=== PATIENT | female | born 1950 | race Caucasian/White ===

== ENCOUNTER 2017-05-10 12:46 | Inpatient (IN) | payer OTHER, MEDICARE ==
[~2017-05-10] VITALS: Wt 53.7 kg
[~2017-05-10 12:46] MED LIST: AMLO5TAB22 PO; CETI10 PO; D32000CA PO; DULE200A PO; GABA400C5 PO; GLIP5 PO; LISI2.5T3 PO; MAGN400 PO; METF500 PO; NAPR250T57 PO; NITR-29 PO; PERF20NE IN; RANI150 PO; TRAM100T19 PO; TRAZ50TA4 PO; VENL75 PO; [UNRECOGNIZED DRUG - CODE] PO; [UNRECOGNIZED DRUG - OTHER] PV
[2017-05-10 13:34] VITALS: BP 115/58; PULSE 79; RESP 18; TEMP 97.8; O2SAT 94
--- NOTE | 2017-05-10 14:37 | RADRPT ---
EXAM DATE/TIME: 05/10/2017 14:20 [facility] COMPARISON: CHEST SINGLE AP, May 16, 2014, 19:39. INDICATIONS : Patient states she fell on Wednesday, left elbow pain and bruising. MEDICAL HISTORY : None. SURGICAL HISTORY : None. ENCOUNTER: Initial ACUITY: 3 days PAIN SCORE: 9/10 LOCATION: Left Elbow FINDINGS: The examination demonstrates a distracted fracture of the olecranon process. The remainder the osseou s structures of the elbow appear intact. There is fairly diffuse soft tissue swelling. CONCLUSION: 1. Distracted fracture of the olecranon process. Shayan Garcia MD on May 10, 2017 at 14:34 Board Certified Radiologist. This report was verified electronically.
--- NOTE | 2017-05-10 15:46 | RADRPT ---
EXAM DATE/TIME: 05/10/2017 15:25 [facility] COMPARISON: No previous studies available for comparison. INDICATIONS : Trauma, fall. Hit right side of face. RADIATION DOSE: 19.18 CTDIvol (mGy) MEDICAL HISTORY : Hypertension. SURGICAL HISTORY : None. ENCOUNTER: Initial ACUITY: 1 day PAIN SCORE: 7/10 LOCATION: Right facial TECHNIQUE: Volumetric scanning of the facial bones was performed. Using automated exposure contr ol and adjustment of the mA and/or kV according to patient size, radiation dose was kept as low as re asonably achievable to obtain optimal diagnostic quality images. DICOM format image data is availabl e electronically for review and comparison. FINDINGS: ORBITS: The orbital and infraorbital osseous structures are intact. The retroconal structures choudhury ve a normal configuration. No radiopaque foreign bodies are seen. NASAL BONE: The nasal bone and maxillary spine are intact ZYGOMATIC ARCHES: Symmetric without evidence of fracture. SINUSES: The maxillary, ethmoid and frontal sinuses are intact. No air-fluid levels seen. NASAL CAVITY: The nasal septum is intact and midline. The lacrimal ducts are intact. SOFT TISSUES: No radiopaque foreign bodies seen. No soft-tissue swelling is seen. INTRACRANIAL: No intracranial air seen. CRIBIFORM PLATE: Grossly intact. CONCLUSION: Minimal soft tissue swelling, negative for fracture Curtis Garcia MD FACR on May 10, 2017 at 15:43 Board Certified Radiologist. This report was verified electronically.
--- NOTE | 2017-05-10 15:49 | RADRPT ---
EXAM DATE/TIME: 05/10/2017 15:25 [facility] COMPARISON: CT BRAIN W/O CONTRAST, May 16, 2014, 19:33. INDICATIONS : Trauma, fall. Hit right side of face. RADIATION DOSE: 45.79 CTDIvol (mGy) MEDICAL HISTORY : Hypertension. SURGICAL HISTORY : None. ENCOUNTER: Initial ACUITY: 1 day PAIN SCALE: 7/10 LOCATION: cranial TECHNIQUE: Multiple contiguous axial images were obtained of the head. Using automated exposure control and adj ustment of the mA and/or kV according to patient size, radiation dose was kept as low as reasonably a chievable to obtain optimal diagnostic quality images. DICOM format image data is available electro nically for review and comparison. FINDINGS: CEREBRUM: The ventricles are normal for age. No evidence of midline shift, mass lesion, hemorrhage or acute in farction. No extra-axial fluid collections are seen. POSTERIOR FOSSA: The cerebellum and brainstem are intact. The 4th ventricle is midline. The cerebellopontine angle i s unremarkable. EXTRACRANIAL: The visualized portion of the orbits is intact. SKULL: The calvaria is intact. No evidence of skull fracture. CONCLUSION: 1. No acute intracranial abnormality is identified. Shayan Garcia MD on May 10, 2017 at 15:33 Board Certified Radiologist. This report was verified electronically.
[2017-05-10 15:56] VITALS: BP 135/62; PULSE 69; RESP 18; O2SAT 98
--- NOTE | 2017-05-10 16:18 | PD ---
HPI Chief Complaint: Fall Time Seen by Provider: 15:44 Travel History International Travel<30 days: No Contact w/Intl Traveler<30days: No Traveled to known affect area: No History of Present Illness HPI 67-year-old female presents to the emergency department for evaluation of head injury, left elbow injury after a slip and fall that occurred on Wednesday, 3 days ago. Patient states she slipped and fell in her kitchen. She denies any LOC. She denies neck pain or back pain. No chest pain or abdominal pain she is not on anticoagulants. Patient states her pain at this time is 0/10. She has swelling noted to the left arm. Exacerbating factors movement of the left elbow. Alleviating factors keeping the arm still. Moderate severity. PFSH Past Medical History Hx Anticoagulant Therapy: No Depression: Yes Cancer: No Cardiovascular Problems: Yes COPD: Yes Diabetes: Yes Patient Takes Glucophage: Yes Diminished Hearing: No Gastrointestinal Disorders: Yes GERD: Yes Genitourinary: No Hypertension: Yes Musculoskeletal: No Neurologic: No Psychiatric: Yes Reproductive: No Respiratory: No Ulcer: Yes (Ruptered ulcer) Tetanus Vaccination: > 5 Years Influenza Vaccination: Yes Menopausal: Yes Past Surgical History Abdominal Surgery: Yes (Surgery to repair ulcer, appendix removal, gall blacdder removal) Cardiac Surgery: No Ear Surgery: No Endocrine Surgery: No Eye Surgery: Yes (Cataract removal left eye) Genitourinary Surgery: Yes (insertion of suprapubic catheter) Gynecologic Surgery: No Hysterectomy: Yes Oral Surgery: No Thoracic Surgery: No Other Surgery: Yes Social History Alcohol Use: No Tobacco Use: No Substance Use: No Allergies-Medications (Allergen,Severity, Reaction): Coded Allergies: No Known Allergies (Unverified Adverse Reaction, Unknown, 05/10/17) Reported Meds & Prescriptions Reported Meds & Active Scripts Active Review of Systems Except as stated in HPI: all other systems reviewed are Neg Physical Exam Narrative GENERAL: Well-nourished, well-developed elderly female patient, afebrile. SKIN: Focused skin assessment warm/dry. Patient has ecchymosis and swelling to the left arm. She has a small abrasion to the left dorsal forearm. HEAD: Normocephalic. Patient has ecchymosis to the right eye orbit. EYES: No scleral icterus. No injection or drainage. NECK: Supple, trachea midline. No JVD or lymphadenopathy. CARDIOVASCULAR: Regular rate and rhythm without murmurs, gallops, or rubs. Left radial pulses easily found with Doppler. RESPIRATORY: Breath sounds equal bilaterally. No accessory muscle use. Lung sounds are clear to auscultation. GASTROINTESTINAL: Abdomen soft, non-tender, nondistended. MUSCULOSKELETAL: No cyanosis, or edema. BACK: Nontender without obvious deformity. No CVA tenderness. No midline spinal tenderness. Data Data Last Documented VS Vital Signs Date Time Temp Pulse Resp B/P (MAP) Pulse Ox O2 Delivery O2 Flow Rate FiO2 05/10/17 15:56 69 18 135/62 (86) 98 Room Air 05/10/17 13:34 97.8 Orders Orders Complete Blood Count With Diff (05/10/17 13:36) Basic Metabolic Panel (Bmp) (05/10/17 13:36) Coag Profile (05/10/17 13:36) Ct Brain W/O Iv Contrast(Rout) (05/10/17 ) Ct Facial Bones W/O Iv Cont (05/10/17 ) Elbow, Complete (4 Vws) (05/10/17 ) Chest, Single Ap (05/10/17 ) Electrocardiogram (05/10/17 ) Splint Or Brace Apply/Monitor (05/10/17 16:28) Fiberglass Splint Elbow Adult (05/10/17 ) Sling Cradle Arm (05/10/17 ) Labs Laboratory Tests Test 05/10/17 16:10 Prothrombin Time 10.0 SEC Prothromb Time International Ratio 1.0 RATIO Activated Partial Thromboplast Time 24.7 SEC MDM Medical Decision Making Medical Screen Exam Complete: Yes Emergency Medical Condition: Yes Medical Record Reviewed: Yes Interpretation(s) Last Impressions Maxillofacial CT 05/10/17 0000 Signed Impressions: Service Date/Time: Wednesday, May 10, 2017 15:25 - CONCLUSION: Minimal soft tissue swelling, negative for fracture Curtis Garcia MD FACR Head CT 05/10/17 0000 Signed Impressions: Service Date/Time: Wednesday, May 10, 2017 15:25 - CONCLUSION: 1. No acute intracranial abnormality is identified. Shayan Garcia MD Elbow X-Ray 05/10/17 0000 Signed Impressions: Service Date/Time: Wednesday, May 10, 2017 14:20 - CONCLUSION: 1. Distracted fracture of the olecranon process. Shayan Garcia MD Differential Diagnosis Elbow fracture versus contusion versus closed head injury versus intracranial hemorrhage versus skull fracture versus facial contusion versus facial fracture Narrative Course 67-year-old female presents to the emergency department for evaluation of head injury, left elbow injury after a slip and fall on Wednesday. X-ray left elbow shows a distracted fracture olecranon process. CT of the head shows no acute intracranial abnormality. CT of the facial bones shows minimal soft tissue swelling, negative for fracture. CBC, BMP, coag profile, EKG, chest x-ray ordered and pending. 1608 -I spoke to Dr. Penaloza, our orthopedist validation consultant. He would like the patient admitted to the hospitalist, n.p.o. after midnight. Dr. Perkins accepted admission. Diagnosis Primary Impression: Fracture of left olecranon process Qualified Codes: S52.022A - Displaced fracture of olecranon process without intraarticular extension of left ulna, initial encounter for closed fracture Admitting Information Admitting Physician Requests: Observation Melinda Zaidi May 10, 2017 16:18
--- NOTE | 2017-05-10 16:42 | RADRPT ---
EXAM DATE/TIME: 05/10/2017 16:22 [facility] COMPARISON: ELBOW LEFT COMPLETE (4 VWS), May 10, 2017, 14:20. INDICATIONS : Evaluate for pneumonia, pneumothorax, or any communicable disease. Pre op left elbow. MEDICAL HISTORY : Hypertension. SURGICAL HISTORY : None. ENCOUNTER: Initial ACUITY: 1 day PAIN SCORE: 0/10 LOCATION: Bilateral chest FINDINGS: The heart is normal in size. There are mild chronic appearing interstitial changes within the pulmona ry parenchyma. The lungs are otherwise clear. The visualized osseous structures are grossly intact. CONCLUSION: 1. Chronic appearing interstitial changes. The lungs are otherwise clear. Shayan Garcia MD on May 10, 2017 at 16:37 Board Certified Radiologist. This report was verified electronically.
[2017-05-10] MEDS ORDERED: NALOXONE HCL 0.4 MG/ML AMP IV PUSH PRN (17:45)
[2017-05-10] MEDS ORDERED: ACETAMINOPHEN/HYDROcodone 325 MG/7.5 MG TAB PO PRN (17:45)
[2017-05-10] MEDS ORDERED: ONDANSETRON HCL 4 MG/2 ML VIAL IVP PRN (17:45)
[2017-05-10] MEDS ORDERED: SODIUM CHLORIDE 0.9% FLUSH 10 ML FLUSH IV FLUSH PRN (17:45)
[2017-05-10] MEDS ORDERED: ACETAMINOPHEN/HYDROcodone 325 MG/5 MG TAB PO PRN (17:45)
[2017-05-10] MEDS ORDERED: BISACODYL 10 MG SUPP RECTAL PRN (17:45)
[2017-05-10] MEDS ORDERED: LACTULOSE SYRUP 20 GM/30 ML CUP PO PRN (17:45)
[2017-05-10] MEDS ORDERED: SENNOSIDES 8.6 MG TAB PO PRN (17:45)
[2017-05-10] MEDS ORDERED: ACETAMINOPHEN 325 MG TAB PO PRN (17:45)
[2017-05-10] MEDS ORDERED: MAGNESIUM HYDROXIDE SUSP 30 ML CUP PO PRN (17:45)
[2017-05-10] MEDS ORDERED: RESP: ALBUTEROL 2.5 MG/IPRATROPIUM 0.5 MG NEB (PRN) NEB (18:00)
[2017-05-10 19:56] VITALS: BP 121/69; PULSE 73; RESP 18; TEMP 98; O2SAT 98
[2017-05-10] MEDS ORDERED: DEXTROSE 50% IN WATER 50 ML VIAL(D50) IV PUSH PRN (20:45)
[2017-05-10] MEDS ORDERED: GLUCAGON 1 MG/ML VIAL OTHER PRN (20:45)
[2017-05-10] MEDS: DOCUSATE SODIUM 50 MG/SENNA 8.6 MG TAB PO SCH (21:00)
[2017-05-10] MEDS: INSULIN ASPART SUPPLEMENTAL SCALE SQ SCH (21:00)
--- NOTE | 2017-05-10 21:50 | HHI.HP ---
HPI Service [facility] Primary Care Physician [facility] Admission Diagnosis Distracted left olecranon fracture Diagnoses: (1) Fracture of left olecranon process Chief Complaint: left elbow and right head pain s/p fall at home Travel History International Travel<30 Days: No Contact w/Intl Traveler <30 Da: No Traveled to Known Affected Are: No History of Present Illness Ms. Rubalcava is a 67-year-old female with a history of COPD, Type 2 Diabetes Mellitus, hypertension, and ruptured gastric ulcer presented to the emergency room for evaluation of left arm pain and right head pain following a mechanical fall that occurred at her home. She was found to have a distracted fracture of the left olecranon process and is being admitted for orthopedic surgery evaluation and treatment. She was admitted to the hospitalist service for management of her chronic medical problems. The patient is seen in her hospital room. She reports falling at home on Wednesday , 05/07/2017 with subsequent pain in her left arm and right anglican area and developing ecchymosis over the course of the weekend. She really did not want to come into the hospital but when the pain would not subside and the bruising seemed to be getting worse, she presented today. She reports pain in the left elbow as 7 out of 10 and "achy" in quality though it becomes sharp in quality with movement. Symptom is relieved by resting and not moving her arm. Currently, her head pain is a 3 out of 10 with worsening pain upon bending forward. She denies any loss of consciousness, chest pain, or shortness of breath prior to her fall. She denies any recent fever, chills, nausea, vomiting , diarrhea, and black or tarry stools. Review of Systems Except as stated in HPI: all other systems reviewed are Neg Past Family Social History Past Medical History COPD, Type 2 Diabetes Mellitus, hypertension, and ruptured gastric ulcer . Past Surgical History Cholecystectomy Appendectomy Gastric ulcer repair Hysterectomy Left eye cataract surgery Suprapubic catheter placement . Reported Medications The patient is uncertain of her home meds and receives her medications from the [facility] . Allergies: Coded Allergies: No Known Allergies (Unverified Allergy, Unknown, 05/10/17) Family History Parents when patient was only 1 years old and she is uncertain of cause of ; she has no siblings; she has 2 healthy sons ages 47 and 42 . Social History Tobacco: Smoked 3 packs per day; quit smoking 15 years ago; quit smoking around the age of 52 and started smoking in her teens Alcohol: Denies drinking alcohol currently and denies being a heavy drinker at any time . Physical Exam Vital Signs Vital Signs Date Time Temp Pulse Resp B/P (MAP) Pulse Ox O2 Delivery O2 Flow Rate FiO2 05/10/17 19:56 98.0 73 18 121/69 (86) 98 05/10/17 18:48 05/10/17 15:56 69 18 135/62 (86) 98 Room Air 05/10/17 15:53 69 18 99 Room Air 05/10/17 13:34 97.8 79 18 115/58 (77) 94 Physical Exam CONSTITUTIONAL: This is a well-nourished, pleasant elderly female patient, in no apparent distress. INTEGUMENTARY: No rashes. Cool and dry. Bruising to right anglican region and periorbital region. Left arm in full arm splint; ecchymosis and edema noted in fingers on the left but finger movement, sensation, and capillary refill normal on left. EYES: No scleral icterus. No injection or drainage. ENT: Nose without bleeding, purulent drainage. NECK: Trachea midline. No JVD. CARDIOVASCULAR: Regular rate and rhythm without murmurs, gallops, or rubs. RESPIRATORY: Clear to auscultation. Breath sounds equal bilaterally. No wheezes , rales, or rhonchi. GASTROINTESTINAL: Abdomen soft, non-tender, nondistended. No guarding. GENITOURINARY: Suprapubic catheter noted draining to leg bag; suprapubic site without signs of infection. MUSCULOSKELETAL: Extremities without clubbing, cyanosis, or edema. No calf tenderness. NEUROLOGICAL: Awake and alert. Motor and sensory grossly within normal limits. Normal speech. . Laboratory Laboratory Tests Test 05/10/17 16:10 Prothrombin Time 10.0 Prothromb Time International Ratio 1.0 Activated Partial Thromboplast Time 24.7 Imaging Last Impressions Maxillofacial CT 05/10/17 0000 Signed Impressions: Service Date/Time: Wednesday, May 10, 2017 15:25 - CONCLUSION: Minimal soft tissue swelling, negative for fracture Curtis Garcia MD FACR Head CT 05/10/17 0000 Signed Impressions: Service Date/Time: Wednesday, May 10, 2017 15:25 - CONCLUSION: 1. No acute intracranial abnormality is identified. Shayan Garcia MD Elbow X-Ray 05/10/17 0000 Signed Impressions: Service Date/Time: Wednesday, May 10, 2017 14:20 - CONCLUSION: 1. Distracted fracture of the olecranon process. Shayan Garcia MD Chest X-Ray 05/10/17 0000 Signed Impressions: Service Date/Time: Wednesday, May 10, 2017 16:22 - CONCLUSION: 1. Chronic appearing interstitial changes. The lungs are otherwise clear. Shayan Garcia MD . Caprini VTE Risk Assessment Caprini VTE Risk Assessment: Mod/High Risk (score >= 2) Caprini Risk Assessment Model Point Value = 1 Point Value = 2 Point Value = 3 Point Value = 5 Age 41-60 Minor surgery BMI > 25 kg/m2 Swollen legs Varicose veins or History of unexplained or recurrent spontaneous Oral contraceptives or hormone replacement Sepsis (< 1 month) Serious lung disease, including pneumonia (< 1 month) Abnormal pulmonary function Acute myocardial infarction Congestive heart failure (< 1 month) History of inflammatory bowel disease Medical patient at bed rest Age 61-74 Arthroscopic surgery Major open surgery (> 45 min) Laparoscopic surgery (> 45 min) Malignancy Confined to bed (> 72 hours) Immobilizing plaster cast Central venous access Age >= 75 History of VTE Family history of VTE Factor V Leiden Prothrombin [id number] Lupus anticoagulant Anticardiolipin antibodies Elevated serum homocysteine Heparin-induced thrombocytopenia Other congenital or acquired thrombophilia Stroke (< 1 month) Elective arthroplasty Hip, pelvis, or leg fracture Acute spinal cord injury (< 1 month) Prophylaxis Regimen Total Risk Factor Score Risk Level Prophylaxis Regimen 0-1 Low Early ambulation 2 Moderate Order ONE of the following: *Sequential Compression Device (SCD) *Heparin 5000 units SQ BID 3-4 Higher Order ONE of the following medications: *Heparin 5000 units SQ TID *Enoxaparin/Lovenox 40 mg SQ daily (WT < 150 kg, CrCl > 30 mL/min) *Enoxaparin/Lovenox 30 mg SQ daily (WT < 150 kg, CrCl > 10-29 mL/min) *Enoxaparin/Lovenox 30 mg SQ BID (WT < 150 kg, CrCl > 30 mL/min) AND/OR *Sequential Compression Device (SCD) 5 or more Highest Order ONE of the following medications: *Heparin 5000 units SQ TID (Preferred with Epidurals) *Enoxaparin/Lovenox 40 mg SQ daily (WT < 150 kg, CrCl > 30 mL/min) *Enoxaparin/Lovenox 30 mg SQ daily (WT < 150 kg, CrCl > 10-29 mL/min) *Enoxaparin/Lovenox 30 mg SQ BID (WT < 150 kg, CrCl > 30 mL/min) AND *Sequential Compression Device (SCD) Assessment and Plan Problem List: (1) Fracture of left olecranon process ICD Code: S52.022A - Displaced fracture of olecranon process without intraarticular extension of left ulna, initial encounter for closed fracture Status: Acute Assessment and Plan Ms. Rubalcava is a 67-year-old female with a history of COPD, Type 2 Diabetes Mellitus, hypertension, and ruptured gastric ulcer presented to the emergency room for evaluation of left arm pain and right head pain following a mechanical fall that occurred at her home. She was found to have a distracted fracture of the left olecranon process and is being admitted for orthopedic surgery evaluation and treatment. She was admitted to the hospitalist service for management of her chronic medical problems. Fracture of the left olecranon process - Orthopedic surgeon, Dr. Penaloza, consulted in the ER - Patient n.p.o. after midnight - Hydrocodone as needed for pain Type 2 Diabetes Mellitus - Accu-Cheks before meals and at bedtime with low-dose NovoLog sliding scale coverage - PRN Hypoglycemia protocol - Monitor trends and blood glucose readings and adjust treatments as indicated Acute on chronic renal insufficiency secondary to mild dehydration - BUN elevated at 19, creatinine 0.97, estimated GFR 57 -no recent baseline labs for comparison - IV fluid hydration with D5 normal saline at 84 cc/h while n.p.o. - Monitor intake and output every shift - Check CMP in a.m. and follow results in a.m. follow results - Avoid nephrotoxins Hyperkalemia - Kayexalate 15 g p.o. 1 dose - Recheck potassium in morning and follow results - Continuous cardiac telemetry to monitor for arrhythmias Anemia - H&H 9.9 and 30.9 respectively - no recent labs for comparison - Monitor CBC - will check iron/TIBC profile Will need to verify home medications as soon as possible so that those medications can be continued - patient could not specifically report her home medications DVT prophylaxis - SCDs/TEDs. . Discussed Condition With Dr. Mckay, patient, and RN Physician Certification 2 Midnight Certification Type: Admission for Inpatient Services Order for Inpatient Services The services are ordered in accordance with Medicare regulations or non- Medicare payer requirements, as applicable. In the case of services not specified as inpatient-only, they are appropriately provided as inpatient services in accordance with the 2-midnight benchmark. Estimated LOS (days): 3 days is the estimated time the patient will need to remain in the hospital, assuming treatment plan goals are met and no additional complications. Post-Hospital Plan: Home Problem Qualifiers (1) Fracture of left olecranon process: Qualified Codes: S52.022A - Displaced fracture of olecranon process without intraarticular extension of left ulna, initial encounter for closed fracture Dulce Maria Vargas May 10, 2017 21:50
[2017-05-10] MEDS ORDERED: PANTOPRAZOLE SOD 40 MG DELAYED RELEASE TAB PO ONE (22:00)
[2017-05-10] MEDS ORDERED: CALCIUM CARBONATE 500 MG CHEWABLE TAB CHEW ONE (22:00)
[2017-05-10 22:24] LABS: AUTOMATED NEUTROPHIL # 4.8 TH/MM3 (1.8-7.7); BASOPHIL % 0.4 % (0.0-2.0); EOSINOPHIL # 0.1 TH/MM3 (0-0.4); EOSINOPHIL % 1.7 % (0.0-4.0); HEMATOCRIT 30.9 % (35.0-46.0); HEMOGLOBIN 9.9 GM/DL (11.6-15.3); LYMPH % 19.6 % (9.0-44.0); LYMPHOCYTE # 1.3 TH/MM3 (1.0-4.8); MEAN CELL VOLUME 79.5 FL (80.0-100.0); MEAN CORPUSCULAR HEMOGLOBIN 25.4 PG (27.0-34.0); MEAN CORPUSCULAR HGB CONC 31.9 % (32.0-36.0); MEAN PLATELET VOLUME 8.9 FL (7.0-11.0); MONO % 8.3 % (0.0-8.0); MONOCYTE # 0.6 TH/MM3 (0-0.9); PLATELET COUNT 245 TH/MM3 (150-450); RED BLOOD COUNT 3.89 MIL/MM3 (4.00-5.30); RED CELL DISTRIBUTION WIDTH 18.6 % (11.6-17.2); WHITE BLOOD COUNT 6.8 TH/MM3 (4.0-11.0)
[2017-05-10 22:36] LABS: BICARBONATE 22.8 MEQ/L (21.0-32.0); CREATININE 0.97 MG/DL (0.50-1.00)
[2017-05-10] MEDS: SODIUM CHLORIDE 0.9% FLUSH 10 ML FLUSH IV FLUSH SCH (23:45)
[2017-05-11] MEDS ORDERED: SODIUM POLYSTYRENE SULFONATE SUSP 15 GM/60 ML CUP PO ONE (00:45)
[2017-05-11] MEDS ORDERED: DEXT 5%-NACL 0.9% 1000 ML INJ 1,000 ML IV SCH (01:00)
[2017-05-11] MEDS ORDERED: GLIP5TAB8 PO (01:28)
[2017-05-11] MEDS ORDERED: NAPR250T4 PO (01:28)
[2017-05-11] MEDS ORDERED: TRAM50TA PO (01:28)
[2017-05-11] MEDS ORDERED: GABA400C5 PO (01:28)
[2017-05-11] MEDS ORDERED: METF500T PO (01:28)
[2017-05-11 01:56] VITALS: PULSE 74
[2017-05-11 04:00] VITALS: PULSE 89
[2017-05-11 06:06] VITALS: BP 114/72; PULSE 86; RESP 18; TEMP 98.8; O2SAT 96
[2017-05-11 07:38] LABS: BASOPHIL % 0.3 % (0.0-2.0); EOSINOPHIL # 0.1 TH/MM3 (0-0.4); EOSINOPHIL % 1.9 % (0.0-4.0); HEMOGLOBIN 9.8 GM/DL (11.6-15.3); LYMPH % 16.4 % (9.0-44.0); LYMPHOCYTE # 0.9 TH/MM3 (1.0-4.8); MEAN CELL VOLUME 80.6 FL (80.0-100.0); MEAN CORPUSCULAR HEMOGLOBIN 25.6 PG (27.0-34.0); MEAN CORPUSCULAR HGB CONC 31.7 % (32.0-36.0); MEAN PLATELET VOLUME 8.7 FL (7.0-11.0); MONO % 6.6 % (0.0-8.0); MONOCYTE # 0.4 TH/MM3 (0-0.9); NEUT % 74.8 % (16.0-70.0); PLATELET COUNT 266 TH/MM3 (150-450); RED BLOOD COUNT 3.84 MIL/MM3 (4.00-5.30); RED CELL DISTRIBUTION WIDTH 18.4 % (11.6-17.2); WHITE BLOOD COUNT 5.3 TH/MM3 (4.0-11.0)
[2017-05-11 08:00] VITALS: PULSE 90
[2017-05-11] MEDS: INSULIN ASPART SUPPLEMENTAL SCALE SQ SCH ×4 (08:00→21:01)
[2017-05-11 08:09] LABS: % SATURATION IRON PROFILE 7.3 % (20-50); ALBUMIN 3.1 GM/DL (3.4-5.0); ALKALINE PHOSPHATASE 119 U/L (45-117); ALT (GPT) 20 U/L (10-53); AST (GOT) 24 U/L (15-37); BLOOD UREA NITROGEN 16 MG/DL (7-18); CALCIUM 8.8 MG/DL (8.5-10.1); CHLORIDE 107 MEQ/L (98-107); CREATININE 1.12 MG/DL (0.50-1.00); GLOMERULAR FILTRATION RATE 48 ML/MIN (>89); GLUCOSE,RANDOM 199 MG/DL (74-106); IRON (FE) 26 MCG/DL (50-170); SODIUM (NA) 138 MEQ/L (136-145); TOTAL BILIRUBIN ADULT 0.4 MG/DL (0.2-1.0); TOTAL IRON BINDING CAPACITY 357 MCG/DL (250-450); TOTAL PROTEIN 7.1 GM/DL (6.4-8.2)
[2017-05-11] MEDS ORDERED: POVIDONE IODINE 5% (ANTISEPSIS KIT) 4 APPLICATIONS EACH NARE PRN (08:30)
[2017-05-11] MEDS ORDERED: METOPROLOL TARTRATE 25 MG TAB PO PRN (08:30)
[2017-05-11] MEDS ORDERED: LACTATED RINGER'S 1000 ML IV PRN (08:30)
[2017-05-11] MEDS ORDERED: CHLORHEXIDINE GLUCONATE 2 % 1 PACK (2 CLOTHS) TOPICAL PRN (08:30)
[2017-05-11] MEDS ORDERED: SODIUM CHLORID 0.9% 500 ML IV PRN (08:30)
[2017-05-11 08:38] VITALS: BP 151/67; PULSE 88; RESP 14; TEMP 98.5; O2SAT 96
--- NOTE | 2017-05-11 08:44 | EKG ---
Date Performed: 05/11/2017 Time Performed: 06:48:28 PTAGE: 67 years EKG: Sinus rhythm WITH SHORT TN INTERVAL PROBABLE ARM LEAD REVERSAL ABNORMAL ECG PREVIOUS TRACING : 05/10/2017 16.51 Compared to previous tracing, arm lead reversal is now pres ent. DOCTOR: Ruben Schafer Interpretating Date/Time 05/11/2017 08:23:36
[2017-05-11] MEDS: DOCUSATE SODIUM 50 MG/SENNA 8.6 MG TAB PO SCH ×2 (09:00→20:53)
[2017-05-11] MEDS: SODIUM CHLORIDE 0.9% FLUSH 10 ML FLUSH IV FLUSH SCH ×2 (09:00→20:53)
[2017-05-11] MEDS ORDERED: ACETAMINOPHEN 1000 MG/100 ML 100 ML IV ONE (09:30)
[2017-05-11] MEDS ORDERED: VANCOMYCIN HCL 1000 MG VIAL ONE (09:31)
[2017-05-11] MEDS ORDERED: SODIUM CHLOR 0.9% 250 ML INJ 250 ML ONE (09:32)
[2017-05-11] MEDS ORDERED: GENTAMICIN SULFATE 80 MG/2 ML VIAL ONE (09:40)
[2017-05-11] MEDS ORDERED: HYDR-3580 PO (10:06)
[2017-05-11] MEDS ORDERED: VITA2000 PO (10:06)
[2017-05-11] MEDS ORDERED: CALCTAB19 PO (10:06)
[2017-05-11] MEDS ORDERED: VITA500012 PO (10:06)
[2017-05-11] MEDS ORDERED: ceFAZolin INJ 1,000 MG VIAL ONE (10:08)
--- NOTE | 2017-05-11 10:57 | MB ---
cc: Dayne Constantino MD DATE OF CONSULT: 05/11/2017 REASON FOR CONSULTATION: Left proximal ulna fracture. CONSULTING PHYSICIAN: Dr. Gray. HISTORY: Ms. Rubalcava is a 67-year-old female who does have multiple medical problems including COPD and diabetes. She describes a mechanical fall. She states that she was walking and was in a hurry. She had coffee in her hands. She lost her balance and fell. She did hit her head. She had no loss of consciousness. She also landed on her left elbow. She had immediate left elbow pain. She presented to the Emergency Room where x-rays revealed a displaced left olecranon fracture. She is currently awake and alert in the emergency room. Her main complaint is her left elbow. Pain is worse with movement. She does have some soreness on the right side of her face. She denies dizziness, syncope or loss of consciousness. PAST MEDICAL HISTORY: COPD, type 2 diabetes, hypertension, history of gastric ulcer. PAST SURGICAL HISTORY: Cholecystectomy, hysterectomy, gastric ulcer repair, cataract surgery, hysterectomy. MEDICATIONS: Please see EMR for complete list of inpatient medications. This was reviewed. ALLERGIES: NO KNOWN DRUG ALLERGIES. FAMILY HISTORY: The patient is unsure of her family history. Her parents when she was only 1 years old. She has no siblings. SOCIAL HISTORY: The patient quit smoking 15 years ago. She denies alcohol or drug use. REVIEW OF SYSTEMS: The patient denies headache, visual changes, neck pain, chest pain, shortness of breath, abdominal pain, nausea, vomiting or recent weight loss, fevers or chills, numbness or tingling of extremities. She complains of left elbow pain. The pain is worse with movement. PHYSICAL EXAMINATION: GENERAL: The patient is a pleasant 67-year-old female. She is awake and She is alert and oriented x3. VITAL SIGNS: Temperature 98.5, pulse 88, respirations 14, blood pressure 151/67, O2 saturations 96% on room air. HEENT: The patient is normocephalic. The patient has a large contusion over her right eye and orbit. Pupils are equal. NECK: Soft, nontender. The trachea is in the midline head. ABDOMEN: Soft, nontender, nondistended. EXTREMITIES: Examination of the right upper extremity reveals no pain with shoulder, elbow and wrist motion. She has intact sensation in all fingers. She has good capillary refill in all fingers. Skin is intact. Radial pulses palpable. Examination of the left arm reveals no tenderness around her shoulder, wrist or fingers. She has intact sensation in all fingers. She has pain with any elbow motion. She has mild swelling around the elbow. The forearm compartments are soft. Examination of the lower extremities reveals no pain with hip, knee or ankle motion bilaterally. Sensation is intact to both feet. She has good capillary refill in both feet. X-RAYS: X-rays of the left elbow were reviewed. X-rays reveal a displaced left olecranon fracture. The remainder of the ulnohumeral joint is reduced. LABORATORY DATA: The patient has a white blood cell count of 5.3, hemoglobin of 9.8, hematocrit of 31.0. INR is 1.0. BUN is 16 and creatinine is 1.12. IMPRESSION: 1. COPD. 2. Diabetes. 3. Left olecranon fracture. PLAN: Treatment options were discussed with the patient. At this point, I would recommend open reduction, internal fixation of left olecranon. Risks of surgery include bleeding, infection, injuries to arteries, nerves and blood vessels, nonunion, malunion, wound complications, painful hardware, need for hardware removal, as well as medical complications including blood clot, stroke, heart attack and . All questions were answered. I also explained that to her that she will likely have some loss of elbow motion. I will plan on surgery today. A mid-level provider in my office, nurse practitioner or PA, may see this patient on a follow-up basis and continue to implement the objective of this plan including: Starting or adjusting medications, injections of muscle, tendon, bursa or joints, cast application, orthotic or brace application, physical therapy, further radiographic studies including x-ray, MRI, CT, ultrasounds or bone scan, vascular studies, neurologic studies, or other specialist consultations, and proceeding with surgical management as appropriate. MD EMPERATRIZ Skelton/LEÓN , 10:33 AM , 10:55 AM
--- NOTE | 2017-05-11 11:00 | HHI.PR ---
Subjective Remarks In bed. Says she has pain in her arm but is controlled by meds. . There is also complaining of headaches after the fall. No chest pain or shortness of breath no palpitations. No fever or chills. Objective Vitals Vital Signs Date Time Temp Pulse Resp B/P (MAP) Pulse Ox O2 Delivery O2 Flow Rate FiO2 05/11/17 08:38 98.5 88 14 151/67 (95) 96 05/11/17 08:00 90 05/11/17 06:36 20 05/11/17 06:06 98.8 86 18 114/72 (86) 96 05/11/17 04:00 89 05/11/17 01:56 74 05/10/17 19:56 98.0 73 18 121/69 (86) 98 05/10/17 18:48 05/10/17 15:56 69 18 135/62 (86) 98 Room Air 05/10/17 15:53 69 18 99 Room Air 05/10/17 13:34 97.8 79 18 115/58 (77) 94 I/O 05/10/17 05/10/17 05/10/17 05/11/17 05/11/17 05/11/17 07:00 15:00 23:00 07:00 15:00 23:00 Output Total 1300 ml 300 ml Balance -1300 ml -300 ml Output Urine Total 1300 ml 300 ml # Voids 1 # Bowel Movements 1 Result Diagram: 05/11/17 0638 05/11/17 0638 Imaging Last Impressions Maxillofacial CT 05/10/17 0000 Signed Impressions: Service Date/Time: Wednesday, May 10, 2017 15:25 - CONCLUSION: Minimal soft tissue swelling, negative for fracture Curtis Garcia MD FACR Head CT 05/10/17 0000 Signed Impressions: Service Date/Time: Wednesday, May 10, 2017 15:25 - CONCLUSION: 1. No acute intracranial abnormality is identified. Shayan Garcia MD Elbow X-Ray 05/10/17 0000 Signed Impressions: Service Date/Time: Wednesday, May 10, 2017 14:20 - CONCLUSION: 1. Distracted fracture of the olecranon process. Shayan Garcia MD Chest X-Ray 05/10/17 0000 Signed Impressions: Service Date/Time: Wednesday, May 10, 2017 16:22 - CONCLUSION: 1. Chronic appearing interstitial changes. The lungs are otherwise clear. Shayan Garcia MD Objective Remarks GENERAL APPEARANCE : This is a well-nourished, pleasant elderly female patient, in no apparent distress. SKIN: No rashes. Cool and dry. Bruising to right taoist region and periorbital region. Left arm in full arm splint; ecchymosis and edema noted in fingers on the left but finger movement, sensation, and capillary refill normal on left. CARDIOVASCULAR: Regular rate and rhythm without murmurs, gallops, or rubs. RESPIRATORY: Clear to auscultation. Breath sounds equal bilaterally. No wheezes , rales, or rhonchi. GASTROINTESTINAL: Abdomen soft, non-tender, nondistended. No guarding. GENITOURINARY: Suprapubic catheter noted draining to leg bag; suprapubic site without signs of infection. MUSCULOSKELETAL: Extremities without clubbing, cyanosis, or edema. No calf tenderness. NEUROLOGICAL: Awake and alert. Motor and sensory grossly within normal limits. Normal speech. A/P Problem List: (1) Fracture of left olecranon process ICD Code: S52.022A - Displaced fracture of olecranon process without intraarticular extension of left ulna, initial encounter for closed fracture Status: Acute Assessment and Plan Ms. Rubalcava is a 67-year-old female with a history of COPD, Type 2 Diabetes Mellitus, hypertension, and ruptured gastric ulcer presented to the emergency room for evaluation of left arm pain and right head pain following a mechanical fall that occurred at her home. She was found to have a distracted fracture of the left olecranon process and is being admitted for orthopedic surgery evaluation and treatment. She was admitted to the hospitalist service for management of her chronic medical problems. Fracture of the left olecranon process - Orthopedic surgeon, Dr. Penaloza,plan for OR today - Patient n.p.o. after midnight - Hydrocodone as needed for pain Type 2 Diabetes Mellitus - Accu-Cheks before meals and at bedtime with low-dose NovoLog sliding scale coverage - PRN Hypoglycemia protocol - Monitor trends and blood glucose readings and adjust treatments as indicated Acute on chronic renal insufficiency secondary to mild dehydration - BUN elevated at 19, creatinine 0.97, estimated GFR 57 -no recent baseline labs for comparison - IV fluid hydration with D5 normal saline at 84 cc/h while n.p.o. - Monitor intake and output every shift - Check CMP in a.m. and follow results in a.m. follow results - Avoid nephrotoxins Hyperkalemia - Kayexalate 15 g p.o. 1 dose - Recheck potassium in morning and follow results - Continuous cardiac telemetry to monitor for arrhythmias Anemia - H&H 9.9 and 30.9 respectively - no recent labs for comparison - Monitor CBC - will check iron/TIBC profile DVT prophylaxis - SCDs/TEDs. Consult PT/OT Discussed Condition With patient, and nurse DC when cleared by ortho. Patient might need rehab Problem Qualifiers (1) Fracture of left olecranon process: Qualified Codes: S52.022A - Displaced fracture of olecranon process without intraarticular extension of left ulna, initial encounter for closed fracture Elena Montgomery MD May 11, 2017 11:00
[2017-05-11] MEDS ORDERED: Post-op Orders (for Pharmacy) XX ONE (11:30)
[2017-05-11] MEDS ORDERED: MORPHINE SULFATE 4 MG/ML INJ IV PUSH PRN (11:30)
--- NOTE | 2017-05-11 11:30 | PD.OP ---
cc: Dayne May MD Operative Report Date of Surgery: May 11, 2017 Preoperative Diagnosis: Displaced left olecranon fracture Postoperative Diagnosis: Procedure: Open reduction internal fixation left olecranon Anesthesia: Gen. Surgeon: Dayne May Van Helper(s): JOSE Collins PA-C The surgical procedure was assisted by my physician bilingual sales assistant. My P.A. presence was necessary throughout this case for the manipulation and positioning of the surgical extremity. My P.A. was assisting me throughout the duration of this procedure. The skill set of a physician bilingual sales assistant was medically necessary to complete this procedure. During the surgical case the composite technician was working at the back table and the physician bilingual sales assistant was directly assisting me. Operation and Findings: Implants used: Biomet Patient was seen and evaluated preoperatively. Patient was found to have a displaced intra-articular left olecranon fracture. The risk and benefits of the surgery were discussed in depth and informed consent was obtained. Risk of surgery include bleeding, infection, painful hardware, wound, case, elbow stiffness, loss of motion, elbow arthritis, injuries to arteries nerves or blood vessels, weakness and numbness of hand, as well as medical complications associated with general anesthesia. All questions were answered. Patient was brought to operating room. IV sedation and anesthesia were administered. Patient was placed into a lateral decubitus position. Timeout procedure was performed. IV antibiotics were administered prior to incision. The operative arm was prepped with alcohol followed by Hibiclens and draped in usual sterile fashion. Procedure began with a 4 inch incision over the olecranon. Subcutaneous tissue dissected with Bovie. Fracture site was visualized. Fascia was elevated around the fracture site. There was mild comminution of the fracture site. Fracture fragments were gently manipulated. A fracture tenaculum was used to aid in reduction. Multiple K wires result provisional fixation. A Biomet proximal plate was selected. Plate was provisionally held with K wires 3.5 cortical screws were used to compress plate to bone. Multiple cortical screws were placed in the ulna shaft. Multiple locking screws were placed in the proximal ulna. All screws were predrilled and premeasured for appropriate length. K wires were removed. Final fluoroscopy revealed excellent of fractures well-placed hardware. Articular surface appeared to be in near anatomic alignment. Wound was now thoroughly irrigated. Incision was now closed with #1 Vicryl, 3-0 Vicryl, and tylor. Sterile dressings were applied. Patient's placed a well molded well-padded splint. Patient was transferred to recovery in stable condition. Dayne May MD May 11, 2017 11:30
[2017-05-11] MEDS ORDERED: DO NOT ADM ANY ANTICOAGULANT DRUGS PRN (11:47)
[2017-05-11] MEDS ORDERED: MIDAZOLAM HCL 2 MG/2 ML VIAL ONE (11:55)
[2017-05-11] MEDS ORDERED: MORPHINE SULFATE 2 MG/ML INJ ONE ×2 (11:58→12:32)
[2017-05-11] MEDS ORDERED: PROPOFOL 200 MG/20 ML AMP IV ONE (12:00)
[2017-05-11] MEDS ORDERED: NEOSTIGMINE 5 MG/5 ML SYRINGE IV PUSH ONE (12:00)
[2017-05-11] MEDS ORDERED: LIDOCAINE HCL 1% PF 5 ML SYRINGE OTHER ONE (12:00)
[2017-05-11] MEDS ORDERED: ONDANSETRON HCL 4 MG/2 ML VIAL IV ONE (12:00)
[2017-05-11] MEDS ORDERED: GLYCOPYRROLATE 1 MG/5 ML SYRINGE IV PUSH ONE (12:00)
[2017-05-11] MEDS ORDERED: ROCURONIUM INJ 50 MG/5 ML SYRINGE IV PUSH ONE (12:00)
[2017-05-11 13:28] VITALS: BP 134/90; PULSE 80; RESP 14; TEMP 96.8; O2SAT 97
--- NOTE | 2017-05-11 13:59 | RADRPT ---
EXAM DATE/TIME: 05/11/2017 11:16 [facility] COMPARISON: FLUOROSCOPY PORTABLE UP TO 1HR, May 11, 2017, 0:00. INDICATIONS : Post op ORIF left olecranon. MEDICAL HISTORY : Hypertension. SURGICAL HISTORY : None. ENCOUNTER: Subsequent ACUITY: 2 days PAIN SCORE: Non-responsive. LOCATION: Left Elbow. FINDINGS: The examination demonstrates interval ORIF of the patient's olecranon fracture. The alignment post pl ating is excellent. CONCLUSION: 1. Excellent alignment of the patient's fracture post plating. Shayan Garcia MD on May 11, 2017 at 13:57 Board Certified Radiologist. This report was verified electronically.
[2017-05-11] MEDS: ACETAMINOPHEN/HYDROcodone 325 MG/7.5 MG TAB PO PRN ×2 (15:11→20:53)
--- NOTE | 2017-05-11 15:55 | EKG ---
Date Performed: 05/10/2017 Time Performed: 16:51:03 PTAGE: 67 years EKG: Sinus rhythm WITH SHORT OH INTERVAL LOW QRS VOLTAGE IN PRECORDIAL LEADS POSSIBLE ANTERIOR MYOCARDIAL INFARCTION B ORDERLINE ECG PREVIOUS TRACING : 05/17/2014 17.22 Compared to previous tracing, heart rate has decreased, poo r R wave progression is now present. DOCTOR: Ruben Schafer Interpretating Date/Time 05/11/2017 15:54:50
[2017-05-11] MEDS ORDERED: ceFAZolin 2 GM PREMIX 50 ML IV SCH (18:00)
--- NOTE | 2017-05-11 18:52 | HHI.DS ---
Discharge Summary Admission Date May 10, 2017 at 17:39 Discharge Date: May 11, 2017 Admitting Diagnosis Distracted left olecranon fracture (1) Fracture of left olecranon process ICD Code: S52.022A - Displaced fracture of olecranon process without intraarticular extension of left ulna, initial encounter for closed fracture Status: Acute (2) Altered mental status ICD Code: R41.82 - Altered mental status Status: Acute (3) Urgency incontinence ICD Code: N39.41 - Urgency incontinence Status: Acute (4) COPD (chronic obstructive pulmonary disease) ICD Code: J44.9 - COPD (chronic obstructive pulmonary disease) Status: Acute (5) Diabetes mellitus ICD Code: E11.9 - Diabetes mellitus Status: Acute (6) Hypertension ICD Code: I10 - Hypertension Status: Acute (7) CKD (chronic kidney disease) stage 2, GFR 60-89 ml/min ICD Code: N18.2 - CKD (chronic kidney disease) stage 2, GFR 60-89 ml/min Status: Acute (8) Fall ICD Code: W19.XXXA - Fall Status: Acute Procedures Displaced left olecranon fracture s/p Open reduction internal fixation left olecranon 05/11/[address] Constantino Brief History - From Admission Ms. Rubalcava is a 67-year-old female with a history of COPD, Type 2 Diabetes Mellitus, hypertension, and ruptured gastric ulcer presented to the emergency room for evaluation of left arm pain and right head pain following a mechanical fall that occurred at her home. She was found to have a distracted fracture of the left olecranon process and is being admitted for orthopedic surgery evaluation and treatment. She was admitted to the hospitalist service for management of her chronic medical problems. The patient is seen in her hospital room. She reports falling at home on Wednesday , 05/07/2017 with subsequent pain in her left arm and right islam area and developing ecchymosis over the course of the weekend. She really did not want to come into the hospital but when the pain would not subside and the bruising seemed to be getting worse, she presented today. She reports pain in the left elbow as 7 out of 10 and "achy" in quality though it becomes sharp in quality with movement. Symptom is relieved by resting and not moving her arm. Currently, her head pain is a 3 out of 10 with worsening pain upon bending forward. She denies any loss of consciousness, chest pain, or shortness of breath prior to her fall. She denies any recent fever, chills, nausea, vomiting , diarrhea, and black or tarry stools. CBC/BMP: 05/11/17 0638 05/11/17 0638 Significant Findings Laboratory Tests Test 05/10/17 16:10 05/10/17 21:48 05/11/17 06:38 Red Blood Count 3.89 MIL/MM3 (4.00-5.30) 3.84 MIL/MM3 (4.00-5.30) Hemoglobin 9.9 GM/DL (11.6-15.3) 9.8 GM/DL (11.6-15.3) Hematocrit 30.9 % (35.0-46.0) 31.0 % (35.0-46.0) Mean Corpuscular Volume 79.5 FL (80.0-100.0) Mean Corpuscular Hemoglobin 25.4 PG (27.0-34.0) 25.6 PG (27.0-34.0) Mean Corpuscular Hemoglobin Concent 31.9 % (32.0-36.0) 31.7 % (32.0-36.0) Red Cell Distribution Width 18.6 % (11.6-17.2) 18.4 % (11.6-17.2) Monocytes (%) (Auto) 8.3 % (0.0-8.0) Blood Urea Nitrogen 19 MG/DL (7-18) Random Glucose 120 MG/DL (74-106) 199 MG/DL (74-106) Sodium Level 135 MEQ/L (136-145) Potassium Level 5.4 MEQ/L (3.5-5.1) Estimat Glomerular Filtration Rate 57 ML/MIN (>89) 48 ML/MIN (>89) Neutrophils (%) (Auto) 74.8 % (16.0-70.0) Lymphocytes # (Auto) 0.9 TH/MM3 (1.0-4.8) Creatinine 1.12 MG/DL (0.50-1.00) Albumin 3.1 GM/DL (3.4-5.0) Alkaline Phosphatase 119 U/L (45-117) Iron Level 26 MCG/DL (50-170) Percent Iron Saturation 7.3 % (20-50) Imaging Last Impressions Elbow X-Ray 05/11/17 0000 Signed Impressions: Service Date/Time: Thursday, May 11, 2017 11:16 - CONCLUSION: 1. Excellent alignment of the patient's fracture post plating. Shayan Garcia MD Maxillofacial CT 05/10/17 0000 Signed Impressions: Service Date/Time: Wednesday, May 10, 2017 15:25 - CONCLUSION: Minimal soft tissue swelling, negative for fracture Curtis Garcia MD FACR Head CT 05/10/17 0000 Signed Impressions: Service Date/Time: Wednesday, May 10, 2017 15:25 - CONCLUSION: 1. No acute intracranial abnormality is identified. Shayan Garcia MD Chest X-Ray 05/10/17 0000 Signed Impressions: Service Date/Time: Wednesday, May 10, 2017 16:22 - CONCLUSION: 1. Chronic appearing interstitial changes. The lungs are otherwise clear. Shayan Garcia MD PE at Discharge GENERAL APPEARANCE : This is a well-nourished, pleasant elderly female patient, in no apparent distress. SKIN: No rashes. Cool and dry. Bruising to right islam region and periorbital region. Left arm in full arm splint; ecchymosis and edema noted in fingers on the left but finger movement, sensation, and capillary refill normal on left. CARDIOVASCULAR: Regular rate and rhythm without murmurs, gallops, or rubs. RESPIRATORY: Clear to auscultation. Breath sounds equal bilaterally. No wheezes , rales, or rhonchi. GASTROINTESTINAL: Abdomen soft, non-tender, nondistended. No guarding. GENITOURINARY: Suprapubic catheter noted draining to leg bag; suprapubic site without signs of infection. MUSCULOSKELETAL: Extremities without clubbing, cyanosis, or edema. No calf tenderness. NEUROLOGICAL: Awake and alert. Motor and sensory grossly within normal limits. Normal speech. Pt update on day of discharge Feels better. Pain is controlled by meds. No n/v/d/c, No fever or chills.Feels comfortable to go home. Hospital Course Displaced left olecranon fracture s/p Open reduction internal fixation left olecranon 05/11/[address] Constantino Pt Condition on Discharge: Stable Discharge Disposition: Discharge Home Discharge Time: > 30 minutes Discharge Instructions DIET: Follow Instructions for: Heart Healthy Diet, Diabetic Diet Activities you can perform: Regular-No Restrictions, Non Weight Bearing (on affected arm ) Follow up Referrals: Orthopedics - 2 Weeks @ [facility] with Dayne Constantino MD PCP Follow-up - 2-3 Days New Medications: Calcium Carbonate-Vitamin D (Calcium 600+D 200) 600-200 Mg-Unit Tab 1 TAB PO BID for Nutritional Supplement for 60 Days, #120 TAB 0 Refills Cholecalciferol (Vitamin D3) 2,000 Unit Cap 2000 UNITS PO DAILY for Nutritional Supplement, #56 CAP 0 Refills Ergocalciferol (Ergocalciferol) 50,000 Unit Cap 08090 UNITS PO Q7D for Nutritional Supplement, #8 CAP Hydrocodone-Acetaminophen (Hydrocodone-Acetaminophen) 7.5 Mg-325 Mg Tab 1 TAB PO Q4H PRN for PAIN, #60 TAB 0 Refills Wheelchair (Wheelchair) 1 Mis Mis EA .XX DIRECTED, #1 0 Refills Continued Medications: Gabapentin (Gabapentin) 400 Mg Cap 400 CAP PO TID, #30 CAP 0 Refills Glipizide (Glipizide) 5 Mg Tab Unknown Dose PO AC BREAKFAST for Blood Sugar Management, #60 TAB 0 Refills Take 30 minutes before a meal Metformin (Metformin) 500 Mg Tab 500 MG PO BIDPC for Blood Sugar Management, #60 TAB 0 Refills Discontinued Medications: Naproxen (Naproxen) 250 Mg Tab 250 MG PO BID, #60 TAB 0 Refills Tramadol (Tramadol) 50 Mg Tab 100 MG PO HS, TAB 0 Refills Elena Montgomery MD May 11, 2017 18:52
[2017-05-11] MEDS ORDERED: CEFAZOLIN INJ 2,000 MG in SODIUM CHLORIDE 0.9% INJ 80 ML IV ONE (19:00)
--- NOTE | 2017-05-11 19:02 | HHI.FF ---
Face to Face Verification Diagnosis: (1) Fracture of left olecranon process (2) CKD (chronic kidney disease) stage 2, GFR 60-89 ml/min (3) Hypertension (4) Diabetes mellitus (5) COPD (chronic obstructive pulmonary disease) (6) Fall Physical Therapy Order: Evaluate and Treat Occupational Therapy Order: Evaluate and Treat Home Health Nursing Order: Medical education Signs/symptoms of disease process Medication education-adverse effect Nursing assessment with vital signs I have seen patient Fay Rubalcava on 05/11/17. My clinical findings support the need for the requested home health care services because: Ltd mobility - disease progression I certify that my clinical findings support that this patient is homebound because: Post-op weakness Elena Montgomery MD May 11, 2017 19:02
[2017-05-11] MEDS: CALCIUM/VITAMIN D 250 MG/125 U TAB PO SCH (20:51)
[2017-05-11 22:43] LABS: HEMOGLOBIN A1C 5.7 % (4.3-6.0)
[2017-05-12] MEDS: ACETAMINOPHEN/HYDROcodone 325 MG/7.5 MG TAB PO PRN ×3 (00:28→11:08)
[2017-05-12 01:18] VITALS: BP 114/89; PULSE 89; RESP 18; TEMP 98.5; O2SAT 97
[2017-05-12 04:00] VITALS: PULSE 70
--- NOTE | 2017-05-12 07:02 | PD.ORT.PN ---
Subjective Subjective Remarks POD 1 s/p ORIF left olecranon patient reports pain in elbow. states elbow feels "heavy" Objective Vitals Vital Signs Date Time Temp Pulse Resp B/P (MAP) Pulse Ox O2 Delivery O2 Flow Rate FiO2 05/12/17 04:00 70 05/12/17 01:18 98.5 89 18 114/89 (97) 97 05/11/17 16:11 20 05/11/17 13:28 96.8 80 14 134/90 (105) 97 05/11/17 12:55 98.1 73 17 158/71 (100) 95 Room Air 05/11/17 12:45 69 16 158/75 (102) 99 Room Air 05/11/17 12:30 65 16 164/77 (106) 99 Nasal Cannula 3 05/11/17 12:15 90 16 156/59 (91) 99 Nasal Cannula 3 05/11/17 12:00 80 15 176/93 (120) 99 Nasal Cannula 3 05/11/17 11:50 97.6 95 15 152/83 (106) 95 Nasal Cannula 3 05/11/17 08:38 98.5 88 14 151/67 (95) 96 05/11/17 08:00 90 I/O 05/11/17 05/11/17 05/11/17 05/12/17 05/12/17 05/12/17 07:00 15:00 23:00 07:00 15:00 23:00 Intake Total 30 ml Output Total 1300 ml 550 ml Balance -1300 ml -520 ml Intake IV Total 30 ml Output Urine Total 1300 ml 550 ml # Voids 1 # Bowel Movements 1 Result Diagram: 05/11/17 0638 05/11/17 0638 Objective Remarks LUE: +long arm splint. intact. full sensation and movemetn of fingers Assessment & Plan Assessment and Plan 1) Left Olecranon Fx s/p ORIF -POd 1 -NWB -maintain splint at all times -ortho cleared for DC home -f/u with Dougie or PA in 2 weeks Shan Zelaya/Contact Lens Technician PA May 12, 2017 07:02
[2017-05-12 08:14] VITALS: BP 138/66; PULSE 78; RESP 18; TEMP 98.3; O2SAT 97
[2017-05-12] MEDS: CALCIUM/VITAMIN D 250 MG/125 U TAB PO SCH (08:35)
[2017-05-12] MEDS: SODIUM CHLORIDE 0.9% FLUSH 10 ML FLUSH IV FLUSH SCH (08:37)
[2017-05-12] MEDS: DOCUSATE SODIUM 50 MG/SENNA 8.6 MG TAB PO SCH (08:37)
[2017-05-12] MEDS: INSULIN ASPART SUPPLEMENTAL SCALE SQ SCH (08:38)
[2017-05-12] MEDS ORDERED: CHOLECALCIFEROL (VIT D3) 1000 UNIT TAB PO SCH (09:00)
[2017-05-12] MEDS ORDERED: WHEEMIS3 (09:14)
--- NOTE | 2017-05-20 17:46 | PQ ---
Physician Query Response Document PATIENT: JUAN GARNER : 1950 ADMIT DATE: 05/10/2017 5:39 PM DISCH DATE: 05/12/2017 12:32 PM RESPONDING PROVIDER #: kishan QUERY TEXT: Clarification of Clinical Diagnostic Findings Please clarify documentation or clinical relevance for the clinical / diagnostic findings or whether those are insignificant or unable to be further specified: What is meant by "acute renal insufficien cy" ___ Acute renal insufficiency (meaning unspecified disease of kidney) ___ Acute renal failure ___ Acute exacerbation of pre-existing chronic kidney disease,stage 2 ___ Other disorder ___ Clinically unable to determine If you have any additional questions/comments and/or concerns, please do not hesitate to reach out to the CDI/Coding Hotline, Ext. [phone]. The patient's Clinical Indicators include: H - BUN elevated at 19, creatinine 0.97, estimated GFR 57 -no recent baseline labs for comparison - IV fluid hydration with D5 normal saline at 84 cc/h while n.p.o. - Monitor intake and output every shift Query created by: Blanca Vargas on 05/20/2017 4:19 PM RESPONSE TEXT: Patient with slightly elevated Ct and decreased GFR, patient was placed on IVF with D5 ns at 84 cc/h while was NPO for as she had surgery. Patient resumed feedings and PO hydration after surgery and expected kidney function to imprprove,. P atient to follow up as OP with pCP and consultants Electronically signed by: Elena Montgomery MD 05/20/2017 5:41 PM
== END 2017-05-12 12:32 | disposition home health service (06) | DRG 512 ==
LOC: NED 12:46 → NEDA 17:39 → NEPGCP 18:51
PROVIDERS: ADMIT Hospitalist; ATTEND Hospitalist
PROC: 0PSL04Z Reposition Left Ulna with Internal Fixation Device, Open Approach (ICD-10-PCS; principal; 2017-05-11 10:12)
DX: S52.022A Displaced fracture of olecranon process without intraarticular extension of left ulna, initial encounter for closed fracture (principal); E11.22 Type 2 diabetes mellitus with diabetic chronic kidney disease; J44.9 Chronic obstructive pulmonary disease, unspecified; W01.0XXA Fall on same level from slipping, tripping and stumbling without subsequent striking against object, initial encounter; Y92.009 Unspecified place in unspecified non-institutional (private) residence as the place of occurrence of the external cause; Z79.84 Long term (current) use of oral hypoglycemic drugs; E87.5 Hyperkalemia; I12.9 Hypertensive chronic kidney disease with stage 1 through stage 4 chronic kidney disease, or unspecified chronic kidney disease; N18.2 Chronic kidney disease, stage 2 (mild); N28.9 Disorder of kidney and ureter, unspecified; E86.0 Dehydration; D64.9 Anemia, unspecified; Z87.891 Personal history of nicotine dependence; Z87.11 Personal history of peptic ulcer disease
CPT/HCPCS: 29105; 70450; 70486; 71045; 73070; 73080; 76000; 80048; 80053; 82948; 83036; 83540; 83550; 85025; 85610; 85730; 93005; 94150; C1713; J0131; J0690; J1580; J1815; J2250; J2270; J2405; J2710; J3010; J3370; J7042; J7050